=== PATIENT | male | born 1995 | race Caucasian/White ===

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

== ENCOUNTER → 2017-04-16 | Outpatient (CLI) | payer OTHER | LOC: BMCIMAGING 10:10 | PROVIDERS: ATTEND Orthopaedic Surgery Hand Surgery | DX: S52.611A Displaced fracture of right ulna styloid process, initial encounter for closed fracture (principal) ==

== ENCOUNTER → 2017-04-25 | Outpatient (CLI) | payer OTHER | LOC: BMCIMAGING 10:46 | PROVIDERS: ATTEND Orthopaedic Surgery Hand Surgery | DX: S52.611D Displaced fracture of right ulna styloid process, subsequent encounter for closed fracture with routine healing (principal) ==

== ENCOUNTER → 2017-05-19 | Outpatient (CLI) | payer OTHER | LOC: BMCIMAGING 10:23 | PROVIDERS: ATTEND Orthopaedic Surgery Hand Surgery | DX: S52.611D Displaced fracture of right ulna styloid process, subsequent encounter for closed fracture with routine healing (principal) ==

== ENCOUNTER → 2017-06-02 | Outpatient (CLI) | payer OTHER | LOC: BMCIMAGING 14:12 | PROVIDERS: ATTEND Orthopaedic Surgery Hand Surgery | DX: S52.611A Displaced fracture of right ulna styloid process, initial encounter for closed fracture (principal) ==

== ENCOUNTER → 2017-06-30 | Outpatient (CLI) | payer OTHER | LOC: BMCIMAGING 14:23 | PROVIDERS: ATTEND Orthopaedic Surgery Hand Surgery | DX: S52.611D Displaced fracture of right ulna styloid process, subsequent encounter for closed fracture with routine healing (principal) ==